=== PATIENT | male | born 1965 | race Caucasian/White ===

== ENCOUNTER → 2017-01-26 09:35 | Outpatient (CLI) | payer MEDICAID ==
[2016-03-27 17:25] VITALS: BMI 29.4
[~2017-01-26 09:35] MED LIST: BAYER CHEWABLE81 MG PO; CENTRUM COMPLE1 EACH PO; FISH OIL 1,0001 CA1 PO; PROBIOTIC1 EAC1 PO; VITAMIN D31000 UNI2 PO
== END | disposition home or self-care (01) ==
LOC: D.RT 09:35
DX: J44.9 Chronic obstructive pulmonary disease, unspecified (principal)

== ENCOUNTER → 2017-02-10 19:43 | Outpatient (CLI) | payer MEDICAID ==
[2016-03-27 17:25] VITALS: BMI 29.4
== END | disposition home or self-care (01) ==
LOC: D.SLEEP 02-09 20:00
DX: G47.33 Obstructive sleep apnea (adult) (pediatric) (principal)

== ENCOUNTER → 2017-07-28 08:51 | Outpatient (CLI) | payer MEDICAID ==
[2016-03-27 17:25] VITALS: BMI 29.4
== END | disposition home or self-care (01) ==
LOC: D.CT 08:51
DX: N28.9 Disorder of kidney and ureter, unspecified (principal)

== ENCOUNTER → 2017-08-11 19:34 | Outpatient (CLI) | payer MEDICAID ==
[2016-03-27 17:25] VITALS: BMI 29.4
== END | disposition home or self-care (01) ==
LOC: D.SLEEP 08-07 08:00
DX: G47.33 Obstructive sleep apnea (adult) (pediatric) (principal)

== ENCOUNTER → 2017-09-09 09:13 | Outpatient (CLI) | payer MEDICAID ==
[2016-03-27 17:25] VITALS: BMI 29.4
== END | disposition home or self-care (01) ==
LOC: D.RAD 09:13
DX: R13.10 Dysphagia, unspecified (principal)

== ENCOUNTER 2018-06-10 12:20 | Outpatient (CLI) | payer MEDICAID ==
[2016-03-27 17:25] VITALS: BMI 29.4
== END 2018-06-10 14:11 | disposition home or self-care (01) ==
LOC: D.US 12:20 → D.MS 14:03 → D.US 14:11
DX: N50.89 Other specified disorders of the male genital organs (principal)

== ENCOUNTER → 2018-08-02 11:47 | Outpatient (CLI) | payer MEDICAID ==
[2016-03-27 17:25] VITALS: BMI 29.4
[2018-08-05 04:14] LABS: ANGIOTENSIN CONVERTING ENZYME 24 U/L (14-82)
[2018-08-07 20:07] LABS: FUNGAL - ASP FLAVUS Negative (Neg:<1:1); FUNGAL - ASP NIGER Negative (Neg:<1:1); FUNGAL - ASPER FUMIGATUS Negative (Neg:<1:1)
== END | disposition home or self-care (01) ==
LOC: D.LABREF 11:47
PROVIDERS: Internal Medicine Pulmonary Disease
DX: R91.1 Solitary pulmonary nodule (principal)

== ENCOUNTER → 2018-09-13 14:53 | Outpatient (CLI) | payer MEDICAID ==
[2016-03-27 17:25] VITALS: BMI 29.4
== END | disposition home or self-care (01) ==
LOC: D.CT 09-01 11:30
DX: R91.1 Solitary pulmonary nodule (principal)

== ENCOUNTER → 2018-12-01 11:54 | Outpatient (CLI) | payer MEDICAID ==
[2016-03-27 17:25] VITALS: BMI 29.4
== END | disposition home or self-care (01) ==
LOC: D.NM 11-22 10:45
DX: R93.7 Abnormal findings on diagnostic imaging of other parts of musculoskeletal system (principal)

== ENCOUNTER → 2019-01-26 12:33 | Outpatient (CLI) | payer MEDICAID ==
[2016-03-27 17:25] VITALS: BMI 29.4
[2019-01-31 15:14] LABS: HLA B27 Negative (())
== END | disposition home or self-care (01) ==
LOC: D.LAB 01-12 16:00 → D.MRI 01-12 16:30 → D.LAB 01-17 13:30 → D.MRI 01-21 10:00
PROVIDERS: ATTEND Orthopaedic Surgery
DX: M54.5 Low back pain (principal)

== ENCOUNTER → 2019-09-19 15:05 | Outpatient (CLI) | payer MEDICAID ==
[2016-03-27 17:25] VITALS: BMI 29.4
== END | disposition home or self-care (01) ==
LOC: D.RAD 15:05
PROVIDERS: ATTEND Internal Medicine Pulmonary Disease
DX: J98.11 Atelectasis (principal)

== ENCOUNTER → 2021-01-21 13:36 | Outpatient (CLI) | payer MEDICAID ==
[2016-03-27 17:25] VITALS: BMI 29.4
== END | disposition home or self-care (01) ==
LOC: D.US 13:36
PROVIDERS: ATTEND Internal Medicine Interventional Cardiology
DX: I65.23 Occlusion and stenosis of bilateral carotid arteries (principal)

== ENCOUNTER → 2021-01-22 12:58 | Outpatient (CLI) | payer BC ==
[2016-03-27 17:25] VITALS: BMI 29.4
--- NOTE | 2021-01-23 16:13 | EC ---
PATIENT:JOSÉ MIGUEL STAPLETON DATE OF SERVICE: 01/22/21 SEX: M MEDICAL RECORD: [id number] DATE OF : 61 [facility] AGE OF PATIENT: 55 ADMISSION DATE: 01/22/21 REFERRING PHYSICIAN: INTERPRETING PHYSICIAN: JUAN EUGENE MD ECHOCARDIOGRAM REPORT ECHO CHARGES 4 ECHO COMPLETE Date: 01/22/21 CLINICAL DIAGNOSIS: HEART MURMUR ECHOCARDIOGRAPHIC MEASUREMENTS (adult normal given) AC root (d.<3.7cm) 3.9 cm LV Septum d (<1.2 cm> 1.5 cm Valve Excursion 1.7 cm LV Septum (systole) 1.7 cm Left Atria (s.<4.0cm> 3.5 cm LVPW d(<1.2cm) 1.4 cm RV (d.<2.3cm) 4.4 cm LVPW (sytole) 1.8 cm LV diastole(<5.6CM) 6.0 cm MV E-F(>70mm/sec) cm LV systole 3.9 cm LVOT Diameter 2.0 cm MV exc.(>10mm) 1.5 cm Est.ejection fraction (50-75%) % DOPPLER: LVIT cm/sec A 57.0 cm/sec E 47.0 cm/sec LA cm/sec RVSP 40 mmHg LVOT 104 cm/sec AOP1/2T m/s Asc. Ao 125 cm/sec RVOT 62 cm/sec RA cm/sec PA 98 cm/sec AV Gradient Peak 6.29 mmHg AV Mean 3.15 mmHg AV Area 2.9 cm MV Gradient Peak 2.81 mmHg MV Mean 1.29 mmHg MV Area cm COMMENTS: Bricklayer Supervisor: 2 MITRA BARAJAS Agronomy Manager: 3 Dr. Clark TAPE# PACS Pericardial Effusion N DATE OF SERVICE: Adequate 2D, color flow imaging, spectral Doppler, and M-Mode. FINDINGS: LVH is present. LV internal dimensions are normal. Wall motion is normal. EF is greater than or equal to 55%. Aortic valve is tricuspid with good valve excursion. No significant AI. Left atrium is normal at 3.5 cm. Mitral valve shows no prolapse. Trivial MR. Right-sided chamber is grossly normal. Trivial TR. 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
== END | disposition home or self-care (01) ==
LOC: D.HCCECHO 12:58
PROVIDERS: ATTEND Internal Medicine Interventional Cardiology
DX: R01.1 Cardiac murmur, unspecified (principal)

== ENCOUNTER → 2021-05-08 12:34 | Outpatient (CLI) | payer MEDICAID ==
[2016-03-27 17:25] VITALS: BMI 29.4
== END | disposition home or self-care (01) ==
LOC: D.RT 12:34
PROVIDERS: ATTEND Internal Medicine Pulmonary Disease
DX: J44.9 Chronic obstructive pulmonary disease, unspecified (principal)